=== PATIENT | female | born 1975 | race Caucasian/White ===

== ENCOUNTER → 2019-10-29 21:02 | Outpatient (CLI) | payer BC, SELFPAY ==
--- NOTE | 2019-10-29 | BRBX_PTH ---
PATIENT: RAUDEL ALVARENGA LOC: [facility] U#:[id number] AGE/SX: 49/F ROOM: RE10/29/[address]: AUDRA lBock : 1975 BED: DIS: SPEC #: [id number] RECD: 10/29/19 21:02 STATUS: DOROTHY KRISTEN #: [id number] JEREMY: 10/29/19 00:[address]: Lyn Valdez NP DEPT: SURGICAL PATHOLOGY RECD BY: Terry Cain Tissues: Left breast, NOS Procedures: Surgery Specimen Level III HEADER OPERATION: Infected sebaceous cyst left breast PRE-OP DIAGNOSIS: Left breast cyst TISSUE SUBMITTED: Left breast cyst MICROSCOPIC DIAGNOSIS Left breast cyst, excision: Consistent with ruptured epidermal inclusion cyst with associated acute and chronic inflammation. SJ:tricia 11/02/19 MICROSCOPIC DESCRIPTION Slides are reviewed. GROSS DESCRIPTION Received in fixative is one container labeled with the patient's name and designated left breast cyst. The specimen consists of two pieces of walls-pink soft tissue measuring 1 x 0.5 x 0.5 cm and 0.6 x 0.3 x 0.1 cm. The larger piece is bisected. The entire specimen is submitted in one cassette. / SJ:tricia 10/30/19 TC:5 CPT: 87137
[2019-10-29 14:32] VITALS: BMI 26.9
== END ==
PROVIDERS: Visit Provider Nurse Practitioner
DX: N60.82 Other benign mammary dysplasias of left breast (principal)
CPT/HCPCS: 88304; 88305

== ENCOUNTER → 2022-03-22 | Outpatient (CLI) | payer BC, SELFPAY | END | disposition home or self-care (01) | PROVIDERS: Visit Provider Nurse Practitioner | DX: N60.82 Other benign mammary dysplasias of left breast (principal) | CPT/HCPCS: 87070; 87205 ==